=== PATIENT | male | born 1960 | race Caucasian/White ===

== ENCOUNTER 2023-06-29 00:08 | Inpatient (IN) | payer MEDICAID ==
[~2023-06-29] VITALS: Ht 170.2 cm; Wt 88.0 kg
[2023-06-29 00:30] VITALS: BP 140/93; TEMP 98.4; O2SAT 97
[2023-06-29] MEDS ORDERED: MAG HYDROX/AL HYDROX/SIMETH 30 ML UDC PO PRN (01:00)
[2023-06-29] MEDS ORDERED: ACETAMINOPHEN 325 MG TABLET PO PRN (01:00)
[2023-06-29] MEDS ORDERED: ONDANSETRON HCL/PF 4 MG/2 ML VIAL IVP PRN (01:00)
[2023-06-29] MEDS ORDERED: MAGNESIUM HYDROXIDE 30 ML UDC PO PRN (01:00)
[2023-06-29] MEDS ORDERED: ENOXAPARIN SODIUM 100 MG/ML DISP.SYRIN SQ ONE ×2 (01:30→08:00)
[2023-06-29 04:00] VITALS: BP 118/73; TEMP 98.2; O2SAT 98
[2023-06-29 05:58] LABS: BASOPHILS % (AUTO) 0.4 % (0.0-2.0); EOSINOPHILS # (AUTO) 0.1 K/uL (0.0-0.7); EOSINOPHILS % (AUTO) 0.9 % (0.0-6.0); HEMATOCRIT 46 % (39-51); HEMOGLOBIN 15.5 g/dL (13.5-17.5); LYMPHOCYTES # (AUTO) 2.5 K/uL (0.8-4.8); LYMPHOCYTES % (AUTO) 25.4 % (20.0-44.0); MEAN CORPUSCULAR HEMOGLOBIN 31 PG (26.0-33.0); MEAN CORPUSCULAR HGB CONC 34 g/dl (31.0-36.0); MEAN CORPUSCULAR VOLUME 91 fL (80-96); MONOCYTES # (AUTO) 1.4 K/uL (0.1-1.30); MONOCYTES % (AUTO) 13.9 % (2.0-12.0); NEUTROPHILS # (AUTO) 5.8 K/uL (1.8-8.9); NEUTROPHILS % (AUTO) 59.4 % (43.0-81.0); PLATELET COUNT (AUTO) 267 K/uL (150-450); RED BLOOD CELL COUNT(AUTO) 5.01 MIL/uL (4.5-6.0); RED CELL DISTRIBUTION WIDTH 13.7 % (11.5-15.0); WHITE BLOOD COUNT (AUTO) 9.8 K/uL (4.3-11.0)
[2023-06-29 06:32] LABS: CALCIUM, SERUM 9.4 mg/dL (8.5-10.1); CREATININE 0.8 mg/dL (0.6-1.3); MAGNESIUM 2.7 mg/dL (1.8-2.4); PHOSPHORUS 3.5 mg/dL (2.5-4.9); POTASSIUM 3.6 mmol/L (3.5-5.1)
[2023-06-29 08:00] VITALS: BP 103/91; TEMP 98.8; O2SAT 98
[2023-06-29] MEDS ORDERED: AMLO1CAP PO (08:24)
[2023-06-29] MEDS ORDERED: ATOR10TA PO (08:24)
[2023-06-29] MEDS: ASPIRIN 81 MG TAB.CHEW PO SCH (09:10)
[2023-06-29] MEDS: METOPROLOL TARTRATE 25 MG TABLET PO SCH ×2 (09:12→20:38)
[2023-06-29] MEDS: ENOXAPARIN SODIUM 80 MG/0.8 ML DISP.SYRIN SQ SCH ×2 (09:13→20:42)
[2023-06-29] MEDS ORDERED: IOHEXOL-350 100 ML VIAL IV ONE (09:47)
[2023-06-29] MEDS ORDERED: CT SWABBABLE VALVE TRANS SET 1 EA INFUS.SET MC ONE (09:47)
[2023-06-29] MEDS ORDERED: METOPROLOL TARTRATE INJ 5 MG/5 ML AMPUL ONE (10:10)
[2023-06-29] MEDS ORDERED: NITROGLYCERIN 0.4 MG/TAB BOTTLE ONE (10:11)
[2023-06-29] MEDS ORDERED: NITROGLYCERIN 0.4 MG/TAB BOTTLE SL ONE (10:30)
[2023-06-29] MEDS: METOPROLOL TARTRATE INJ 5 MG/5 ML AMPUL IVP PRN ×2 (10:30→10:35)
[2023-06-29 12:00] VITALS: BP 112/82; TEMP 99.5; O2SAT 98
[2023-06-29 16:00] VITALS: BP 113/83; TEMP 100; O2SAT 96
[2023-06-29 20:00] VITALS: BP 132/85; TEMP 98.3; O2SAT 95
[2023-06-29] MEDS ORDERED: ATORVASTATIN 10 MG TABLET PO SCH ×2 (22:00)
[2023-06-30] VITALS: BP 103/67; TEMP 98.1; O2SAT 97
[2023-06-30 04:00] VITALS: BP 111/82; TEMP 97.6; O2SAT 99
[2023-06-30 05:51] LABS: BASOPHILS % (AUTO) 0.3 % (0.0-2.0); EOSINOPHILS # (AUTO) 0.1 K/uL (0.0-0.7); EOSINOPHILS % (AUTO) 1.1 % (0.0-6.0); HEMATOCRIT 43 % (39-51); HEMOGLOBIN 14.5 g/dL (13.5-17.5); LYMPHOCYTES # (AUTO) 2.4 K/uL (0.8-4.8); LYMPHOCYTES % (AUTO) 29.2 % (20.0-44.0); MEAN CORPUSCULAR HEMOGLOBIN 30 PG (26.0-33.0); MEAN CORPUSCULAR HGB CONC 34 g/dl (31.0-36.0); MEAN CORPUSCULAR VOLUME 91 fL (80-96); MONOCYTES # (AUTO) 1.1 K/uL (0.1-1.30); MONOCYTES % (AUTO) 12.9 % (2.0-12.0); NEUTROPHILS # (AUTO) 4.7 K/uL (1.8-8.9); NEUTROPHILS % (AUTO) 56.5 % (43.0-81.0); PLATELET COUNT (AUTO) 255 K/uL (150-450); RED BLOOD CELL COUNT(AUTO) 4.77 MIL/uL (4.5-6.0); RED CELL DISTRIBUTION WIDTH 13.8 % (11.5-15.0); WHITE BLOOD COUNT (AUTO) 8.4 K/uL (4.3-11.0)
[2023-06-30 06:16] LABS: ALBUMIN 3.4 g/dL (3.4-5.0); BILIRUBIN,TOTAL 1.2 mg/dL (0.2-1.0); CALCIUM, SERUM 9.1 mg/dL (8.5-10.1); CREATININE 0.8 mg/dL (0.6-1.3); MAGNESIUM 2.4 mg/dL (1.8-2.4); PHOSPHORUS 4.3 mg/dL (2.5-4.9); POTASSIUM 3.4 mmol/L (3.5-5.1); TOTAL PROTEIN, SERUM 7.3 g/dL (6.4-8.2)
[2023-06-30 07:30] VITALS: BP 110/77; TEMP 98.8; O2SAT 96
[2023-06-30] MEDS ORDERED: BENAZEPRIL HCL 20 MG TABLET PO SCH (09:00)
[2023-06-30] MEDS ORDERED: AMLODIPINE BESYLATE 10 MG TABLET PO SCH (09:00)
[2023-06-30] MEDS: ASPIRIN EC 81 MG TABLET.DR PO SCH ×2 (09:05→09:17)
[2023-06-30] MEDS: ENOXAPARIN SODIUM 80 MG/0.8 ML DISP.SYRIN SQ SCH (09:05)
[2023-06-30] MEDS: ASPIRIN 81 MG TAB.CHEW PO SCH (09:06)
[2023-06-30 09:09] VITALS: BP 110/77
[2023-06-30] MEDS: METOPROLOL TARTRATE 25 MG TABLET PO SCH (09:09)
[2023-06-30] MEDS ORDERED: POTASSIUM CHLORIDE 20 MEQ TAB.PRT.SR PO ONE (12:30)
[2023-07-01] MEDS ORDERED: ASPI-1420 PO (15:24)
== END 2023-06-30 13:45 | disposition left against medical advice (07) | DRG 190 ==
LOC: TELE 00:08
PROVIDERS: ADMIT Nurse Practitioner Acute Care; ATTEND Internal Medicine
DX: I21.4 Non-ST elevation (NSTEMI) myocardial infarction (principal); E78.5 Hyperlipidemia, unspecified; I10 Essential (primary) hypertension; Z53.29 Procedure and treatment not carried out because of patient's decision for other reasons; Z79.899 Other long term (current) drug therapy; I25.84 Coronary atherosclerosis due to calcified coronary lesion
CPT/HCPCS: 36415; 71045-TC; 75574; 80048-TC; 80053-TC; 80061-TC; 83735-TC; 84100-TC; 84484-TC; 85025-TC; 87081-TC; 93307-TC; G0378; J1650; J3490; Q9967

== ENCOUNTER 2023-07-01 14:53 | Inpatient (IN) | payer MEDICAID ==
[~2023-07-01] VITALS: Ht 167.6 cm; Wt 75.3 kg
[~2023-07-01 14:53] MED LIST: AMLO1CAP PO; ATOR10TA PO
[2023-07-01] MEDS ORDERED: ASPI-1420 PO (15:24)
[2023-07-01] MEDS ORDERED: ASPIRIN EC 325 MG TABLET.DR PO ONE (15:28)
[2023-07-01] MEDS ORDERED: NITROGLYCERIN PACKET 1 GM PACKET ONE (15:28)
[2023-07-01] MEDS ORDERED: NITROGLYCERIN PACKET 1 GM PACKET TD ONE (15:30)
[2023-07-01] MEDS ORDERED: ASPIRIN 81 MG TAB.CHEW ONE (15:35)
[2023-07-01] MEDS: ASPIRIN 325 MG TABLET PO ONE ×2 (15:40→15:50)
[2023-07-01] MEDS ORDERED: ASPIRIN 81 MG TAB.CHEW PO ONE (16:00)
[2023-07-01 16:12] LABS: BASOPHILS % (AUTO) 0.4 % (0.0-2.0); EOSINOPHILS % (AUTO) 0.5 % (0.0-6.0); HEMATOCRIT 44 % (39-51); HEMOGLOBIN 14.9 g/dL (13.5-17.5); LYMPHOCYTES # (AUTO) 1.4 K/uL (0.8-4.8); MEAN CORPUSCULAR HEMOGLOBIN 31 PG (26.0-33.0); MEAN CORPUSCULAR HGB CONC 34 g/dl (31.0-36.0); MEAN CORPUSCULAR VOLUME 91 fL (80-96); MONOCYTES # (AUTO) 0.8 K/uL (0.1-1.30); MONOCYTES % (AUTO) 10.3 % (2.0-12.0); NEUTROPHILS # (AUTO) 5.2 K/uL (1.8-8.9); NEUTROPHILS % (AUTO) 69.8 % (43.0-81.0); PLATELET COUNT (AUTO) 243 K/uL (150-450); RED BLOOD CELL COUNT(AUTO) 4.82 MIL/uL (4.5-6.0); RED CELL DISTRIBUTION WIDTH 13.5 % (11.5-15.0); WHITE BLOOD COUNT (AUTO) 7.5 K/uL (4.3-11.0)
[2023-07-01 16:37] LABS: ALBUMIN 3.8 g/dL (3.4-5.0); BILIRUBIN,DIRECT 0.2 mg/dL (0.0-0.2); BILIRUBIN,TOTAL 0.9 mg/dL (0.2-1.0); CALCIUM, SERUM 9.2 mg/dL (8.5-10.1); CREATININE 0.8 mg/dL (0.6-1.3); POTASSIUM 3.5 mmol/L (3.5-5.1); TOTAL PROTEIN, SERUM 7.9 g/dL (6.4-8.2)
[2023-07-01] MEDS ORDERED: MAG HYDROX/AL HYDROX/SIMETH 30 ML UDC PO PRN (18:00)
[2023-07-01] MEDS ORDERED: MORPHINE SULFATE INJ 2 MG/ML DISP.SYRIN IV PRN (18:00)
[2023-07-01] MEDS ORDERED: NITROGLYCERIN 30 GM TUBE TP SCH (18:00)
[2023-07-01] MEDS ORDERED: MAGNESIUM HYDROXIDE 30 ML UDC PO PRN (18:00)
[2023-07-01] MEDS ORDERED: ONDANSETRON HCL/PF 4 MG/2 ML VIAL IVP PRN (18:00)
[2023-07-01] MEDS ORDERED: ACETAMINOPHEN 325 MG TABLET PO PRN (18:00)
[2023-07-01] MEDS ORDERED: Z GUARD REMEDY 4 OZ OINT TP PRN (18:00)
[2023-07-01 20:00] VITALS: BP 116/88; TEMP 98.3; O2SAT 94
[2023-07-01] MEDS: ENOXAPARIN SODIUM 80 MG/0.8 ML DISP.SYRIN SQ SCH (20:49)
[2023-07-01] MEDS ORDERED: ATORVASTATIN 40 MG TABLET PO SCH (22:00)
[2023-07-01] MEDS: NITROGLYCERIN 30 GM TUBE TP SCH (22:06)
[2023-07-02] VITALS (10 sets, daily range): BP systolic 109–134; BP diastolic 68–94; TEMP 98.3–98.7; O2SAT 94–97
[2023-07-02] MEDS: NITROGLYCERIN 30 GM TUBE TP SCH ×3 (04:27→16:00)
[2023-07-02 05:08] LABS: BASOPHILS % (AUTO) 0.2 % (0.0-2.0); EOSINOPHILS # (AUTO) 0.1 K/uL (0.0-0.7); HEMATOCRIT 41 % (39-51); HEMOGLOBIN 13.9 g/dL (13.5-17.5); LYMPHOCYTES % (AUTO) 27.7 % (20.0-44.0); MEAN CORPUSCULAR HEMOGLOBIN 31 PG (26.0-33.0); MEAN CORPUSCULAR HGB CONC 34 g/dl (31.0-36.0); MEAN CORPUSCULAR VOLUME 91 fL (80-96); MONOCYTES # (AUTO) 0.8 K/uL (0.1-1.30); MONOCYTES % (AUTO) 10.8 % (2.0-12.0); NEUTROPHILS # (AUTO) 4.3 K/uL (1.8-8.9); NEUTROPHILS % (AUTO) 60.3 % (43.0-81.0); PLATELET COUNT (AUTO) 234 K/uL (150-450); RED BLOOD CELL COUNT(AUTO) 4.51 MIL/uL (4.5-6.0); RED CELL DISTRIBUTION WIDTH 13.2 % (11.5-15.0); WHITE BLOOD COUNT (AUTO) 7.1 K/uL (4.3-11.0)
[2023-07-02 05:13] LABS: INR 1.02 (0.91-1.10); PARTIAL THROMBOPLASTIN TIME 30.5 SEC (24.3-34.3); PROTHROMBIN TIME 10.8 SECS (9.2-11.1)
[2023-07-02 05:15] LABS: CALCIUM, SERUM 9.1 mg/dL (8.5-10.1); CREATININE 0.8 mg/dL (0.6-1.3); MAGNESIUM 2.3 mg/dL (1.8-2.4); PHOSPHORUS 4.5 mg/dL (2.5-4.9); POTASSIUM 3.6 mmol/L (3.5-5.1)
[2023-07-02] MEDS ORDERED: NITROGLYCERIN IN 5 % DEXTROSE 250 ML IV ONE (06:09)
[2023-07-02] MEDS ORDERED: LIDOCAINE HCL/MPF 1% 30 ML VIAL IJ ONE (06:09)
[2023-07-02] MEDS ORDERED: IV SET PRIMARY PUMP SET 1 EA INFUS.SET MC ONE (06:09)
[2023-07-02] MEDS ORDERED: IV NS 0.9% 1,000 ML ONE (06:09)
[2023-07-02] MEDS ORDERED: IODIXANOL 150 ML IV ONE (06:20)
[2023-07-02] MEDS ORDERED: MIDAZOLAM HCL 2 MG/2ML VIAL ONE (07:15)
[2023-07-02] MEDS ORDERED: FENTANYL PF 100MCG/2ML AMPUL ONE (07:15)
[2023-07-02] MEDS ORDERED: HEPARIN SODIUM, PORCINE 1,000 UNIT/ML VIAL ONE (07:21)
[2023-07-02] MEDS ORDERED: IODIXANOL 320MG/ML 50 ML IV ONE (07:21)
[2023-07-02] MEDS ORDERED: HEPARIN SODIUM, PORCINE 5000 UNITS/1 ML VIAL ONE (07:21)
[2023-07-02] MEDS ORDERED: PANTOPRAZOLE 40 MG TABLET.DR PO SCH (07:30)
[2023-07-02] MEDS ORDERED: TICAGRELOR 90 MG TABLET PO ONE (07:32)
[2023-07-02] MEDS ORDERED: ASPIRIN EC 81 MG TABLET.DR PO SCH (09:00)
[2023-07-02] MEDS: ENOXAPARIN SODIUM 80 MG/0.8 ML DISP.SYRIN SQ SCH ×2 (09:00→17:00)
[2023-07-02] MEDS: CARVEDILOL 6.25 MG TABLET PO SCH ×2 (09:31→17:47)
[2023-07-02] MEDS ORDERED: CLOPIDOGREL BISULFATE 300 MG TABLET PO ONE (14:00)
[2023-07-02] MEDS ORDERED: CLOP75TA15 PO ×2 (15:57→18:32)
[2023-07-02] MEDS ORDERED: TICA60TA PO (18:18)
[2023-07-02] MEDS ORDERED: ASPI-1169 PO (18:32)
[2023-07-02] MEDS ORDERED: PANT40TA2 PO (18:32)
[2023-07-02] MEDS ORDERED: CARV6.25 PO (18:32)
[2023-07-02] MEDS ORDERED: ATOR40TA PO (18:32)
== END 2023-07-02 19:00 | disposition home or self-care (01) | DRG 175 ==
LOC: ER 14:55 → TELE 17:31 → ICU 07-02 08:29
PROVIDERS: ADMIT Nurse Practitioner Acute Care; ATTEND Nurse Practitioner Acute Care
PROC: 4A023N7 Measurement of Cardiac Sampling and Pressure, Left Heart, Percutaneous Approach (ICD-10-PCS; principal; 2023-07-02)
PROC: 027034Z Dilation of Coronary Artery, One Artery with Drug-eluting Intraluminal Device, Percutaneous Approach (ICD-10-PCS; 2023-07-02)
PROC: B211YZZ Fluoroscopy of Multiple Coronary Arteries using Other Contrast (ICD-10-PCS; 2023-07-02)
DX: I25.10 Atherosclerotic heart disease of native coronary artery without angina pectoris (principal); E78.5 Hyperlipidemia, unspecified; I10 Essential (primary) hypertension; Z79.82 Long term (current) use of aspirin; Z79.899 Other long term (current) drug therapy
CPT/HCPCS: 36415; 71045-TC; 80048-TC; 80076-TC; 83735-TC; 84100-TC; 84484-TC; 85025-TC; 85347; 85610-TC; 85730-TC; 86850-TC; A4223; G0378; J1644; J1650; J2250; J3010; J3490; J7030; Q9967